=== PATIENT | male | born 1955 | race Caucasian/White ===

== ENCOUNTER → 2017-07-30 | Outpatient (CLI) | payer OTHER ==
[~2017-07-30] MED LIST: FLOMAX 0.40.4 MG/CAP PO; PRILOSEC 20MG20 MG PO
== END ==
LOC: COL.VAS 07:27
DX: I08.1 Rheumatic disorders of both mitral and tricuspid valves (principal)

== ENCOUNTER → 2018-02-26 | Outpatient (CLI) | payer SELFPAY | LOC: COL.RAD 10:29 | DX: R53.82 Chronic fatigue, unspecified (principal); R68.82 Decreased libido; E03.9 Hypothyroidism, unspecified ==

== ENCOUNTER → 2022-03-06 | Outpatient (CLI) | payer SELFPAY | LOC: COL.RAD 08:14 | DX: J84.10 Pulmonary fibrosis, unspecified (principal) | CPT/HCPCS: Q9967 ==